=== PATIENT | male | born 1995 | race Asian ===

== ENCOUNTER 2016-07-31 06:07 | Day surgery (SDC) | payer OTHER ==
[2016-07-28 11:21] VITALS: BMI 22.6
[2016-07-31] MEDS ORDERED: DEXAMETHASONE SOD PHOSPHATE/PF 10 MG/ML SDV ONE (06:46)
[2016-07-31] MEDS ORDERED: MIDAZOLAM HCL 2 MG/2 ML SINGLE DOSE VIAL ONE (06:46)
[2016-07-31] MEDS ORDERED: ROPIVACAINE HCL 0.5% 30ML VIAL ONE (06:46)
[2016-07-31] MEDS ORDERED: PROPOFOL 20 ML ONE ×2 (07:44)
[2016-07-31] MEDS ORDERED: ONDANSETRON 4 MG/2 ML VIAL ONE ×2 (07:54→10:16)
[2016-07-31] MEDS ORDERED: DEXAMETHASONE SOD PHOSPHATE 4 MG/1 ML VIAL ONE (07:54)
[2016-07-31] MEDS ORDERED: ceFAZolin SODIUM 1 GM VIAL ONE (07:54)
[2016-07-31] MEDS ORDERED: KETOROLAC TROMETHAMINE 30 MG/1 ML VIAL ONE (07:54)
[2016-07-31] MEDS ORDERED: LACTATED RINGERS SOLUTION 1,000 ML IV SCH (11:00)
[2016-07-31] MEDS ORDERED: oxyCODONE HCL 5 MG TABLET PO PRN (11:22)
[2016-07-31 12:04] VITALS: TEMP 98
[2016-07-31] MEDS ORDERED: oxyCODONE HCL 5 MG TABLET ONE (12:14)
[2016-07-31 13:50] VITALS: BP 125/72; PULSE 84
== END 2016-07-31 13:00 | disposition home or self-care (01) ==
LOC: FASU 06:07
PROVIDERS: ATTEND Orthopaedic Surgery Sports Medicine
PROC: 0MUP47Z Supplement Left Knee Bursa and Ligament with Autologous Tissue Substitute, Percutaneous Endoscopic Approach (ICD-10-PCS; 2016-07-31)
PROC: 0SBD4ZZ Excision of Left Knee Joint, Percutaneous Endoscopic Approach (ICD-10-PCS; principal; 2016-07-31 08:04)
DX: S83.512A Sprain of anterior cruciate ligament of left knee, initial encounter (principal); S83.282A Other tear of lateral meniscus, current injury, left knee, initial encounter; X58.XXXA Exposure to other specified factors, initial encounter; Y93.9 Activity, unspecified; Y92.9 Unspecified place or not applicable
CPT/HCPCS: 94760